=== PATIENT | male | born 1995 | race Caucasian/White ===

== ENCOUNTER 2019-06-09 01:20 | Emergency (ER) | payer OTHER ==
[~2019-06-09] VITALS: Ht 167.6 cm; Wt 94.8 kg
[2019-06-09 01:20] VITALS: BP 150/100
--- NOTE | 2019-06-09 01:20 | NUR ---
TO BED # 08 AMBULATORY
--- NOTE | 2019-06-09 01:34 | NUR ---
Dr. Alvarez examining patient.
[2019-06-09 01:45] VITALS: BP 138/72
--- NOTE | 2019-06-09 01:45 | NUR ---
Patient discharged with v/s stable. He was assessed and discharged by Dr. Alvarez. Written and verbal after care instructions given and explained. Patient alert, oriented and verbalized understanding of instructions. Ambulatory with steady gait. All questions addressed prior to discharge. ID band removed. Patient advised to follow up with PMD. Rx of Atarax given. Patient educated on indication of medication including possible reaction and side effects. Opportunity to ask questions provided and answered.
== END 2019-06-09 01:45 | disposition home or self-care (01) ==
LOC: MED 01:20
DX: F41.9 Anxiety disorder, unspecified (principal)
CPT/HCPCS: 99283